=== PATIENT | male | born 1985 | race American Indian/Alaskan Native ===

== ENCOUNTER 2018-06-09 10:44 | Emergency (ER) | payer MEDICAID ==
[2018-06-09 10:56] VITALS: BMI 37.5
[2018-06-09 11:06] VITALS: PULSE 87; RESP 18; TEMP 98
--- NOTE | 2018-06-09 12:12 | ED PDOC ---
Arrival/HPI - General Chief Complaint: Trauma Time Seen by Provider: 06/09/18 11:18 Historian: Patient - History of Present Illness Narrative History of Present Illness (Text): 06/09/18 12:15 32-year-old male presents today with left hand pain. Patient states yesterday he was just handed heavy door. He is complaining of pain and swelling to the entire hand over the metacarpals. He denies numbness weakness or tingling in the extremity. He is complaining of decreased range of motion of the hand. Patient states he took Motrin for pain yesterday without improvement. Patient presents today with pain is not improving. Patient denies pain in the forearm. Time/Duration: Other (yesterday) Symptom Onset: Sudden Symptom Course: Unchanged Quality: Aching, Throbbing Severity Level: 8 Past Medical History - Provider Review Nursing Documentation Reviewed: Yes - Travel History Have you recently traveled outside [place] w/in the past 3 mons?: No - Past History Past History: No Previous - Infectious Disease Hx of Infectious Diseases: None - Tetanus Immunization Tetanus Immunization: Unknown - Past Medical History Past Medical History: No Previous - Cardiac Hx Cardiac Disorders: No - Pulmonary Hx Respiratory Disorders: Yes Hx Asthma: Yes - Neurological Hx Neurological Disorder: No - HEENT Hx HEENT Disorder: No - Renal Hx Renal Disorder: No - Endocrine/Metabolic Hx Endocrine Disorders: No - Hematological/Oncological Hx Blood Disorders: No - Integumentary Hx Dermatological Disorder: No - Musculoskeletal/Rheumatological Hx Musculoskeletal Disorders: No Hx Falls: No - Gastrointestinal Hx Gastrointestinal Disorders: No - Genitourinary/Gynecological Hx Genitourinary Disorders: No - Psychiatric Hx Psychophysiologic Disorder: No Hx Substance Use: No - Past Surgical History Past Surgical History: No Previous - Surgical History Hx Orthopedic Surgery: Yes (left foot) Other/Comment: removal of screw left ankle,metal placed on left tibia - Anesthesia Hx Anesthesia: Yes Hx Anesthesia Reactions: No Hx Malignant Hyperthermia: No - Suicidal Assessment Feels Threatened In Home Enviroment: No Family/Social History - Physician Review Nursing Documentation Reviewed: Yes Family/Social History: Unknown Family HX Smoking Status: Current Some Days Smoker Hx Alcohol Use: No Hx Substance Use: No Allergies/Home Meds Allergies/Adverse Reactions: Allergies nut - unspecified Allergy (Verified 01/21/18 11:11) ANAPHYLAXIS shellfish derived Allergy (Verified 01/21/18 11:11) ANAPHYLAXIS Review of Systems - Review of Systems Constitutional: absent: Fatigue, Fevers Respiratory: absent: SOB, Cough Cardiovascular: absent: Chest Pain, Palpitations Gastrointestinal: absent: Abdominal Pain, Nausea, Vomiting Genitourinary Male: absent: Dysuria, Frequency, Hematuria Musculoskeletal: Arthralgias Skin: absent: Rash, Pruritis, Laceration Neurological: absent: Headache, Dizziness Psychiatric: absent: Anxiety, Depression Physical Exam Vital Signs Reviewed: Yes Vital Signs Temp Pulse Resp BP Pulse Ox 06/09/18 11:05 98.0 F 87 18 122/68 96 Temperature: Afebrile Blood Pressure: Normal Pulse: Regular Respiratory Rate: Normal Appearance: Positive for: Well-Appearing, Non-Toxic, Comfortable Pain Distress: None Mental Status: Positive for: Alert and Oriented X 3 - Systems Exam Head: Present: Atraumatic Mouth: Present: Moist Mucous Membranes Neck: Present: Normal Range of Motion Respiratory/Chest: Present: Clear to Auscultation, Good Air Exchange. No: Respiratory Distress, Accessory Muscle Use Cardiovascular: Present: Regular Rate and Rhythm, Normal S1, S2. No: Murmurs Upper Extremity: Present: NORMAL PULSES, Tenderness (left hand; + ttp over 3rd 4th and 5th metacarpal ;+ edema over entire doral aspect of hand; no crepitus noted; limited rom of hand with pain. sensation and distal pulses intact. cap refill <2. ), Swelling, Capillary Refill < 2s. No: Normal ROM, Erythema, Neurovascularly Intact Neurological: Present: GCS=15 Skin: Present: Warm, Dry, Normal Color. No: Rashes Psychiatric: Present: Alert, Oriented x 3 Medical Decision Making ED Course and Treatment: 06/09/18 12:19 Patient nontoxic well-appearing in no distress with stable vital signs X-rays of the left hand; + fracture 4th metacarpal. toradol IM perocet given Po pt states he is not driving home. Patient placed in ulnar gutter splint. sling applied. I discussed all results with patient. pt was advised to followup with the orthopedist for the next 2 days. Return if symptoms worsen persist or new symptoms develop Patient verbalizes understanding of discharge instructions and need for immediate followup. all aspects of this case were discussed the attending of record. Impression: fracture metacarpal Motrin every 6 hours as needed for pain percocet; 1 tablet every 6 hours as needed for moderate to severe pain. may cause drowsiness. Rest, ice, compression, elevation Followup with the orthopedist within the next 2 days Followup with primary care physician within the next 2 days Return if any other concerning symptoms develop - RAD Interpretation Radiology Orders: 06/09/18 11:18 HAND LEFT 3 VIEWS ROUTINE [RAD] Stat - Medication Orders Current Medication Orders: Discontinued Medications Ketorolac Tromethamine (Toradol) 60 mg IM STAT STA Stop: 06/09/18 11:19 Last Admin: 06/09/18 11:26 Dose: 60 mg MAR Pain Assessment Document 06/09/18 11:26 EQ (Rec: 06/09/18 11:27 EQ [id number]) Pain Reassessment Is this a pain reassessment? No Sleep Is patient sleeping during reassessment? No Presence of Pain Presence of Pain Yes IM Administration Charges Document 06/09/18 11:26 EQ (Rec: 06/09/18 11:27 EQ [id number]) Charges for Administration # of IM Administrations 1 Oxycodone/Acetaminophen (Percocet 5/325 Mg Tab) 1 tab PO STAT STA Stop: 06/09/18 12:14 Procedures - Splinting Location: left hand Hand-Made Type: fiberglass Splint: ulnar gutter Pre-Proc Neuro Vasc Exam: normal Post-Proc Neuro Vasc Exam: normal Disposition/Present on Arrival - Present on Arrival Any Indicators Present on Arrival: No History of DVT/PE: No History of Uncontrolled Diabetes: No Urinary Catheter: No History of Decub. Ulcer: No History Surgical Site Infection Following: None - Disposition Have Diagnosis and Disposition been Completed?: Yes Diagnosis: Fracture, metacarpal Disposition: HOME/ ROUTINE Disposition Time: 12:11 Patient Plan: Discharge Patient Problems: Current Active Problems Problem Status Onset Fracture, metacarpal Acute Condition: GOOD Discharge Instructions (ExitCare): Hand Fracture (DC) Additional Instructions: Motrin every 6 hours as needed for pain percocet; 1 tablet every 6 hours as needed for moderate to severe pain. may cause drowsiness. Rest, ice, compression, elevation Followup with the orthopedist within the next 2 days Followup with primary care physician within the next 2 days Return if any other concerning symptoms develop Prescriptions: Ibuprofen [Motrin] 600 mg PO Q6H PRN #20 tab PRN Reason: pain/fever reduction oxyCODONE/Acetaminophen [Percocet 5/325 mg Tab] 1 tab PO Q6H PRN #8 tab PRN Reason: moderate to severe pain Referrals: Merlin Kimble MD [Primary Care Provider] - Follow up with primary Jon Moreno III, MD [Medical Doctor] - Follow up with primary Jeremias Galvan MD [Staff Provider] - Follow up with primary [facility] [Outside] - Follow up with primary Forms: [employer] (E[place]ian), WORK NOTE
[2018-06-09] MEDS ORDERED: Oxycodone/Acetaminophen 5/325 mg Tab PO STA (12:13)
--- NOTE | 2018-06-09 12:41 | RAD ---
PROCEDURE: Left Hand Radiographs. HISTORY: Closed hand in heavy door yesterday COMPARISON: None. FINDINGS: BONES: There is a diagonal probable intra-articular fracture extending through the base of the proximal aspect- base of the 4th metacarpal. No other fractures are seen. JOINTS: Normal. No osteoarthritic changes. SOFT TISSUES: Normal. OTHER FINDINGS: None. IMPRESSION: Diagonal probable intra-articular fracture extending through the base of the proximal aspect- base of the 4th metacarpal. No other fractures are seen.
[2018-06-09 13:12] VITALS: BP 130/71; O2SAT 99
== END 2018-06-09 13:10 | disposition home or self-care (01) ==
LOC: ED 10:44
DX: S62.315A Displaced fracture of base of fourth metacarpal bone, left hand, initial encounter for closed fracture (principal); W22.8XXA Striking against or struck by other objects, initial encounter
CPT/HCPCS: 73130; 96372; 99284; J1885

== ENCOUNTER → 2019-02-13 | Outpatient (CLI) | payer MEDICAID | LOC: RAD 11:40 ==

== ENCOUNTER 2019-03-21 13:24 | Emergency (ER) | payer MEDICAID ==
[2019-03-21 13:24] VITALS: BMI 36.8
[2019-03-21 13:40] VITALS: RESP 18; TEMP 99; O2SAT 97
--- NOTE | 2019-03-21 13:55 | ED PDOC ---
Arrival/HPI - General Chief Complaint: Lower Extremity Problem/Injury Time Seen by Provider: 03/21/19 13:34 Historian: Patient - History of Present Illness Narrative History of Present Illness (Text): 03/21/19 13:44 A 33 year old male, whose past medical history includes ankle bone infusion surgery in January 2019 for previous fractured tibia injury, presents to the emergency department complaining of left knee evaluation for a bump for the last 4 days. Patient reports concern for a left knee bump. Patient states wound looks better. Patient denies any fever, chills, chest pain, nausea, vomiting, or any other complaints. PMD: Kimber Puckett Time/Duration: < week (4 days) Symptom Onset: Gradual Symptom Course: Unchanged Activities at Onset: Light Context: Home Past Medical History - Provider Review Nursing Documentation Reviewed: Yes - Past History Past History: No Previous - Infectious Disease Hx of Infectious Diseases: None - Tetanus Immunization Tetanus Immunization: Unknown - Past Medical History Past Medical History: No Previous - Cardiac Hx Cardiac Disorders: No - Pulmonary Hx Respiratory Disorders: Yes Hx Asthma: Yes ( A CHILD-NO PROBLEM AN ADULT) Other/Comment: smoker - 10 sticks a day - Neurological Hx Neurological Disorder: No - HEENT Hx HEENT Disorder: No - Endocrine/Metabolic Hx Endocrine Disorders: No - Hematological/Oncological Hx Blood Disorders: No - Integumentary Hx Dermatological Disorder: Yes Hx Eczema: Yes (MILD) - Musculoskeletal/Rheumatological Hx Musculoskeletal Disorders: Yes Hx Fractures: Yes (FX. LEFT ANKLE) - Gastrointestinal Hx Gastrointestinal Disorders: No - Genitourinary/Gynecological Hx Genitourinary Disorders: No - Psychiatric Hx Psychophysiologic Disorder: No Hx Emotional Abuse: No Hx Physical Abuse: No Hx Substance Use: No - Past Surgical History Past Surgical History: No Previous - Surgical History Hx Orthopedic Surgery: Yes (LEFT ANKLE) Other/Comment: removal of screw left ankle,metal placed on left tibia. bone fusion L leg - Anesthesia Hx Anesthesia: Yes Hx Anesthesia Reactions: No Hx Malignant Hyperthermia: No - Suicidal Assessment Feels Threatened In Home Enviroment: No Family/Social History - Physician Review Nursing Documentation Reviewed: Yes Family/Social History: No Known Family HX Smoking Status: Current Some Days Smoker Hx Alcohol Use: No Hx Substance Use: No Allergies/Home Meds Allergies/Adverse Reactions: Allergies nut - unspecified Allergy (Verified 02/04/19 09:18) ANAPHYLAXIS shellfish derived Allergy (Verified 01/05/19 09:18) ANAPHYLAXIS Review of Systems - Physician Review All systems were reviewed & negative as marked: Yes - Review of Systems Constitutional: absent: Fevers, Other (chills) Cardiovascular: absent: Chest Pain Gastrointestinal: absent: Nausea, Vomiting Skin: Other (left knee bump; lower left leg cast noted) Physical Exam Vital Signs Reviewed: Yes Vital Signs Temp Pulse Resp BP Pulse Ox 03/21/19 13:24 99 F 100 H 18 141/87 97 Temperature: Afebrile Blood Pressure: Normal Pulse: Tachycardic Respiratory Rate: Normal Appearance: Positive for: Well-Appearing Mental Status: Positive for: Alert and Oriented X 3 - Systems Exam Head: Present: Atraumatic, Normocephalic Pupils: Present: PERRL Extroacular Muscles: Present: EOMI Conjunctiva: Present: Normal Respiratory/Chest: Present: Clear to Auscultation, Good Air Exchange. No: Respiratory Distress, Accessory Muscle Use Cardiovascular: Present: Regular Rate and Rhythm, Normal S1, S2. No: Murmurs Lower Extremity: Present: Capillary Refill < 2 s, Other (mobile cystic-like mass to popliteal left; moving toes freely; no wound to medial side; wound on lateral malleolus; drainage noted on dressing; wound is open; stitch noted to distal aspect of wound which is around 8 cm. ). No: NORMAL PULSES (+2 DP pulses ), Tenderness (left foot non-tender) Neurological: Present: GCS=15, CN II-XII Intact, Speech Normal Psychiatric: Present: Alert, Oriented x 3, Normal Insight, Normal Concentration Medical Decision Making ED Course and Treatment: 03/21/19 13:44 Impression: 33 year old male presenting to the emergency room for left knee evaluation. Plan: -- Ultrasound of left lower extremity -- Reassess and disposition Prior Visits: Notes and results from previous visits were reviewed. Progress Notes: - Scribe Statement The provider has reviewed the documentation as recorded by the Scribgerson Ellis All medical record entries made by the Scribe were at my direction and personally dictated by me. I have reviewed the chart and agree that the record accurately reflects my personal performance of the history, physical exam, medical decision making, and the department course for this patient. I have also personally directed, reviewed, and agree with the discharge instructions and disposition. Disposition/Present on Arrival - Present on Arrival Any Indicators Present on Arrival: No History of DVT/PE: No History of Uncontrolled Diabetes: No Urinary Catheter: No History of Decub. Ulcer: No History Surgical Site Infection Following: None - Disposition Have Diagnosis and Disposition been Completed?: Yes Diagnosis: Garcia cyst Disposition: HOME/ ROUTINE Disposition Time: 16:06 Patient Plan: Discharge Condition: GOOD Discharge Instructions (ExitCare): Garcia's Cyst (DC) Additional Instructions: SREEKANTH DOWELL, thank you for letting us take care of you today. Your provider was Celine Malcolm MD and you were treated for LEG PROBLEM. The emergency medical care you received today was directed at your acute symptoms. If you were prescribed any medication, please fill it and take as directed. It may take several days for your symptoms to resolve. Return to the Emergency Department if your symptoms worsen, do not improve, or if you have any other problems. Please contact your doctor for a follow up visit in 2-3 days. Bring any paperwork you were given at discharge with you along with any medications you are taking to your follow up visit. Our treatment cannot replace ongoing medical care by a primary care provider outside of the emergency department. Thank you for allowing the [facility] team to be part of your care today. Referrals: Kimber Whiting MD [Primary Care Provider] - Follow up with primary Forms: [employer] (Lithuanian)
[2019-03-21 16:44] VITALS: BP 133/77; PULSE 87
--- NOTE | 2019-03-23 09:51 | US ---
PROCEDURE: Left lower extremity venous US HISTORY: Leg pain and swelling. Evaluate for DVT. PHYSICIAN(S): Niles Mascorro MD. TECHNIQUE: Duplex sonography and color-flow Doppler with graded compression were used to evaluate the deep venous system of the left lower extremity. FINDINGS: The visualized deep venous system of the left lower extremity is sonographically normal and compressible. Normal wave forms and augmentation are seen. There is no sonographic evidence for deep venous thrombosis in the visualized segments of the left lower extremity. Enlarged lymph nodes up to 3 cm are noted in the left groin IMPRESSION: 1. No sonographic evidence for deep venous thrombosis in the visualized segments of the left lower extremity.
== END 2019-03-21 16:45 | disposition home or self-care (01) ==
LOC: ED 13:24
DX: M71.22 Synovial cyst of popliteal space [Baker], left knee (principal)

== ENCOUNTER 2019-04-16 13:08 | Outpatient (CLI) | payer MEDICAID | END 2019-04-16 13:09 | disposition home or self-care (01) | LOC: RAD 13:08 ==